=== PATIENT | female | born 2000 | race Asian ===

== ENCOUNTER 2018-01-23 20:13 | Emergency (ER) | payer OTHER ==
[2018-01-23 20:31] VITALS: BMI 23.7
--- NOTE | 2018-01-23 20:48 | PDOC ---
History of Present Illness - General Chief Complaint: Pain Stated Complaint: ABDOMINAL PAIN Time Seen by Provider: 01/23/18 20:41 - History of Present Illness Initial Comments: 01/23/18 20:45 17 yo F with no significant pmh who p/w abdominal pain. Patient reports acute onset of mid-abdominal crampy abdominal pain, while at rest this evening. No identifiable triggers or alleviators. Reports similar occurrence this afternoon , resolving spontaneously. Also endorses nausea without vomiting today. Normal bowel habits, and PO intake. Pain not improved with Tylenol. H/o Ranitidine use with improvement in sx. Patient with intermittent NSAID use for MEDINA disorder. Reports similar abdominal pain 7 months ago, at the time received neg abdominal U/S. Patient denies N/V, F,C, CP, SOB, urinary complaints, abdominal pain, diarrhea, constipation, lightheadedness, weakness, sensory changes. PMHx: as noted above. Denies h/o endoscopy Surgical: Denies h/o abdominal surgery ROS: as noted SHx: Denies Eoth, IVDA, tobacco use. Allergies: NKDA Past History - Past Medical History Allergies/Adverse Reactions: Allergies Allergy/AdvReac Type Severity Reaction Status Date / Time No Known Allergies Allergy Verified 01/23/18 20:31 Home Medications: Ambulatory Orders Calcium Carbonate/Simethicone [Maalox Advanced Tab Chew] 1 each PO ONCE PRN #21 tab.chew 01/23/18 Isoniazid 300 mg PO DAILY 01/23/18 Levothyroxine [Synthroid -] 25 mcg PO DAILY 01/23/18 Ondansetron HCl [Zofran] 4 mg PO TID PRN #21 tablet MDD 3 tab 01/23/18 Ranitidine [Zantac -] 150 mg PO ONCE PRN #21 tablet MDD 1 tab 01/23/18 Thiamine HCl [Vitamin B-1] 1 tab PO DAILY 01/23/18 COPD: No Thyroid Disease: Yes (HYPO) - Immunization History Immunization Up to Date: Yes - Suicide/Smoking/Psychosocial Hx Smoking History: Never smoked Have you smoked in the past 12 months: No Hx Alcohol Use: No Drug/Substance Use Hx: No Review of Systems - Review of Systems Comments:: 01/23/18 20:46 GENERAL/CONSTITUTIONAL: No fever or chills. No weakness. HEAD, EYES, EARS, NOSE AND THROAT: No change in vision. No ear pain or discharge. No sore throat. CARDIOVASCULAR: No chest pain or shortness of breath RESPIRATORY: No cough, wheezing, or hemoptysis. GASTROINTESTINAL: + Abdominal pain, nausea, vomiting. No diarrhea or constipation. GENITOURINARY: No dysuria, frequency, or change in urination. MUSCULOSKELETAL: No joint or muscle swelling or pain. No neck or back pain. SKIN: No rash NEUROLOGIC: No headache, vertigo, loss of consciousness, or change in strength/ sensation. ENDOCRINE: No increased thirst. No abnormal weight change HEMATOLOGIC/LYMPHATIC: No anemia, easy bleeding, or history of blood clots. ALLERGIC/IMMUNOLOGIC: No hives or skin allergy. *Physical Exam - Vital Signs Last Vital Signs Temp Pulse Resp BP Pulse Ox 97.6 F 122 H 18 119/69 100 01/23/18 20:29 01/23/18 20:29 01/23/18 20:29 01/23/18 20:29 01/23/18 20:29 - Physical Exam Comments: 01/23/18 20:46 GENERAL: Awake, alert, and fully oriented, in no acute distress HEAD: No signs of trauma, normocephalic, atraumatic EYES: PERRLA, EOMI, sclera anicteric, conjunctiva clear ENT: Hearing grossly normal, nares patent, oropharynx clear without exudates. Moist mucosa NECK: Normal ROM, supple, no lymphadenopathy, JVD, or masses LUNGS: No distress, speaks full sentences, clear to auscultation bilaterally HEART: Regular rate and rhythm, normal S1 and S2, no murmurs, rubs or gallops, peripheral pulses normal and equal bilaterally. ABDOMEN: + Diffuse abdominal ttp. Soft, normoactive bowel sounds. No guarding, no rebound, no rigidity. No masses. Neg CVA ttp. EXTREMITIES : Normal inspection, Normal range of motion, no edema. No clubbing or cyanosis. SKIN: Warm, Dry, normal turgor, no rashes or lesions noted ED Treatment Course - LABORATORY CBC & Chemistry Diagram: 01/23/18 21:54 01/23/18 21:54 Medical Decision Making - Medical Decision Making 01/23/18 20:47 01/23/18 21:01 17 yo F with no significant pmh who p/w abdominal pain. HR 122, vitals otherwise wnl, AF. + Diffuse abdominal ttp. Possible gastroenteritis vs. biliary dz., gastritis. Will consider colitis, appendicitis. Although, pt. with absent urinary complaints, will consider cystitis, nephrolithiasis. Low suspicion ovarian pathology, AAA, Ao dissection. ED Course: CBC,CMP, UA, HCG, Lipase Maloox, Zofran, Famotidine, NS 01/23/18 22:35 WBC: 12.7 01/23/18 23:17 CMP: Unremarkable Lipase: Neg UA: Neg HCG: Neg HR 112. Patient pain resolved following medication. 01/23/18 23:19 Ranitidine, Maloox, Zofran sent to pharmacy. Stable for d/c with return precautions. Advised to f/u with PMD. *DC/Admit/Observation/Transfer Diagnosis at time of Disposition: Abdominal pain Qualifiers: Abdominal location: generalized Qualified Code(s): R10.84 - Generalized abdominal pain - Discharge Dispostion Condition at time of disposition: Stable - Prescriptions Prescriptions: Calcium Carbonate/Simethicone [Maalox Advanced Tab Chew] 1 each PO ONCE PRN #21 tab.chew PRN Reason: Pain Ondansetron HCl [Zofran] 4 mg PO TID PRN #21 tablet MDD 3 tab PRN Reason: Pain Ranitidine [Zantac -] 150 mg PO ONCE PRN #21 tablet MDD 1 tab PRN Reason: Pain - Referrals Referrals: Jose Burnett MD [Primary Care Provider] - Darrion Rosenthal DO [Staff Physician] - Geraldine Zeng MD [Staff Physician] - - Patient Instructions Printed Discharge Instructions: DI for Abdominal Pain-Adult Additional Instructions: Please return to the emergency department with any new or worsening symptoms or concerns. Please follow up with your primary care physician within 72 hours. Please take medication as prescribed. - Post Discharge Activity - Attestations Physician Attestion: 01/23/18 20:47 I attest to the information provided in this note.
[2018-01-23] MEDS ORDERED: SODIUM CHLORIDE 1,000 ML IV STA (20:57)
[2018-01-23] MEDS ORDERED: SUCRALFATE 1 GM TABLET (FP) PO ONE (20:57)
[2018-01-23] MEDS ORDERED: ONDANSETRON 4 MG/2 ML VIAL IVPUSH ONE (20:57)
[2018-01-23] MEDS ORDERED: FAMOTIDINE 20 MG/50 ML IVPB 20 MG/50 ML MG IVPB ONE ×2 (20:57→21:43)
[2018-01-23] MEDS ORDERED: MAG HYDROX/AL HYDROX/SIMETH 30 ML UNIT-DOSE CUP PO ONE (20:57)
--- NOTE | 2018-01-23 21:25 | PDOC ---
Attending Attestation - Resident Resident Name: Daniel Zapata - ED Attending Attestation I have performed the following: I have examined & evaluated the patient, The case was reviewed & discussed with the resident, I agree w/resident's findings & plan, Exceptions are as noted
[2018-01-23] MEDS ORDERED: ONDANSETRON 4 MG/2 ML VIAL ONE (21:43)
[2018-01-23] MEDS ORDERED: MAG HYDROX/AL HYDROX/SIMETH 30 ML UNIT-DOSE CUP ONE (21:43)
[2018-01-23] MEDS ORDERED: SUCRALFATE 1 GM TABLET (FP) ONE (21:43)
[2018-01-23 22:05] LABS: BASO % 0.3 % (0-2.0); EOS % 0.1 % (0-4.5); HEMATOCRIT 34.9 % (32.4-45.2); HEMOGLOBIN 11.5 GM/dL (10.7-15.3); LYMPH % 6.7 % (8-40); MCH 28.9 pg (25.7-33.7); MCHC 32.9 g/dl (32.0-36.0); MEAN CELL VOLUME 87.9 fl (80-96); MEAN PLT VOLUME 9.6 fl (7.5-11.1); MONO % 6.1 % (3.8-10.2); NEUT % 86.8 % (42.8-82.8); PLATELET COUNT 204 K/MM3 (134-434); RBC 3.97 M/mm3 (3.60-5.2); RDW 13.3 % (11.6-15.6); WHITE BLOOD COUNT 12.7 K/mm3 (4.0-10.0)
[2018-01-23 22:35] LABS: ALBUMIN 4.2 g/dl (3.4-5.0); ALK PHOS 49 U/L (45-117); ANION GAP 8 MMOL/L (8-16); BILIRUBIN,TOTAL 0.4 mg/dL (0.2-1); BLOOD UREA NITROGEN 13 mg/dL (7-18); CHLORIDE 104 mmol/L (98-107); CO2 26 mmol/L (21-32); CREATININE 0.7 mg/dL (0.55-1.3); GLUCOSE,RANDOM 105 mg/dL (74-106); POTASSIUM 4.1 mmol/L (3.5-5.1); SGOT/AST 15 U/L (15-37); SGPT/ALT 23 U/L (13-61); SODIUM 138 mmol/L (136-145)
[2018-01-23 23:04] LABS: URINE APPEARANCE CLEAR; URINE BILIRUBIN NEGATIVE (<2.0 mg/dL); URINE COLOR YELLOW; URINE GLUCOSE (UA) NEGATIVE (NEGATIVE); URINE KETONE 1+ (NEGATIVE); URINE LEUK ESTERASE NEGATIVE (NEGATIVE); URINE NITRITE NEGATIVE (NEGATIVE); URINE PROTEIN 1+ (NEGATIVE); URINE UROBILINOGEN NEGATIVE mg/dL (0.2-1.0)
[2018-01-23 23:06] LABS: EPI CELLS RARE /HPF (FEW); HCG,QUALITATIVE URINE Negative; URINE MUCUS MODERATE
[2018-01-23 23:13] VITALS: BP 99/58; PULSE 112; TEMP 99
== END 2018-01-23 23:28 | disposition home or self-care (01) ==
LOC: JER 20:13
PROC: 3E033GC Introduction of Other Therapeutic Substance into Peripheral Vein, Percutaneous Approach (ICD-10-PCS; principal; 2018-01-23)
PROC: 3E033GC Introduction of Other Therapeutic Substance into Peripheral Vein, Percutaneous Approach (ICD-10-PCS; 2018-01-23)
DX: R10.84 Generalized abdominal pain (principal); E03.9 Hypothyroidism, unspecified
CPT/HCPCS: 36415; 80053; 81003; 81015; 83690; 84703; 85025; 99283-25; J7030